=== PATIENT | male | born 1945 | race Caucasian/White ===

== ENCOUNTER 2016-03-02 11:25 | Emergency (ER) | payer OTHER ==
[~2016-03-02] VITALS: Ht 175.3 cm; Wt 95.8 kg
[~2016-03-02 11:25] MED LIST: ASPEC81 PO; EFFSR75 PO; LISI10TA PO; SAW450CA5 PO; SIMV10TA2 PO; VENL1CAP92 PO
[2016-03-02 11:28] VITALS: TEMP 36.7; Ht 175.3 cm; Wt 95.8 kg
[2016-03-02] MEDS ORDERED: SODIUM CHLORIDE 0.9% 1000ML 250 ML IV STA (12:27)
[2016-03-02] MEDS ORDERED: SODIUM CHLORIDE 0.9% 1000ML 1,000 ML IV STA (12:27)
[2016-03-02 12:56] LABS: BASO % 0.4 %; BASO ABS # 0.03 K/uL (0-0.2); COMPLETE YES; EOS % 9.8 %; HEMATOCRIT 40.6 % (42-52); IG% 0.1 %; LYMPH % 20.1 %; LYMPH ABS # 1.58 K/uL (1.2-3.4); MEAN CELL VOLUME 91.4 fL (80-100); MEAN CORPUSCULAR HEMOGLOBIN 31.8 pg (25-34); MEAN CORPUSCULAR HGB CONC 34.7 g/dl (32-36); MEAN PLATELET VOLUME 10.1 fL (7.4-10.4); MONO % 6.4 %; NEUT % 63.2 %; PLATELET COUNT 282 K/uL (130-400); RED BLOOD COUNT 4.44 M/uL (4.7-6.1); WHITE BLOOD COUNT 7.87 K/uL (4.8-10.8)
[2016-03-02 13:09] LABS: PARTIAL THROMBOPLASTIN RATIO 1.2; PROTHROMBIN TIME (PATIENT) 10.2 SECONDS (9.0-12.0)
[2016-03-02] MEDS ORDERED: LISI-725 PO (13:15)
[2016-03-02 13:19] LABS: BUN/CREATININE RATIO 18.2 (10-20); CALCIUM 8.6 mg/dl (8.5-10.1); CREATININE 0.91 mg/dl (0.60-1.40); POTASSIUM 3.5 mmol/L (3.5-5.1)
--- NOTE | 2016-03-02 13:20 | DIAGNOSTIC IMAGING REPORT ---
CT OF THE HEAD WITHOUT CONTRAST CLINICAL HISTORY: Dizziness. Hypertension. COMPARISON STUDY: No previous studies for comparison. CT DOSE: 823.94 mGycm TECHNIQUE: Helical axial images of the head were obtained without IV contrast. Automated exposure control was utilized for the study. FINDINGS: No acute intracranial hemorrhage, midline shift or mass effect is present. Brain volume is normal for age. Ventricular system is normal. The basilar cisterns are patent. There are no extra-axial collections. Feliz-white differentiation is maintained. There are no findings to suggest acute dural sinus thrombosis or acute territorial infarct. There are no significant calvarial abnormalities. Visualized portions of the sinuses and mastoid air cells are clear. IMPRESSION: No acute intracranial findings. Electronically signed by: Ronan Portillo M.D. 03/02/2016 1:18 PM
[2016-03-02 13:30] LABS: THYROID STIMULATING HORMONE 4.1 uIu/ml (0.300-4.500)
--- NOTE | 2016-03-02 14:22 | DIAGNOSTIC IMAGING REPORT ---
CHEST 2 VIEWS ROUTINE CLINICAL HISTORY: Hypertension, dizziness and chest pain. COMPARISON STUDY: Chest radiograph November 07, 2013. FINDINGS: There is no pneumothorax or pleural effusion. Lumbar spine hardware is incidentally noted. Mild cardiomegaly is unchanged. There is no evidence of pulmonary edema. There is possible underlying emphysema. Lower lung predominant interstitial thickening is noted. This is likely chronic. There is no consolidation. IMPRESSION: 1. No acute cardiopulmonary findings. 2. No change in lower lung predominant interstitial thickening which favors interstitial lung disease. This may reflect pulmonary fibrosis. Electronically signed by: Ronan Portillo M.D. 03/02/2016 2:20 PM
[2016-03-02] MEDS ORDERED: AMLO-110 PO (14:57)
[2016-03-02 15:00] VITALS: BP 159/74; PULSE 70; O2SAT 97
--- NOTE | 2016-03-02 20:57 | EMERGENCY ROOM VISIT NOTE ---
History Report prepared by Gabby: Breanne Pavon Under the Supervision of: Dr. Bobby Barron M.D. First contact with patient: 12:14 Chief Complaint: HYPERTENSION Stated Complaint: HIGH BP History of Present Illness The patient is a 71 year old male who presents to the Emergency Room with complaints of constant hypertension beginning [employer]. The patient has a history of hypertension and has been taking medication for years. He notes that 3 months ago he was switched to Lisinopril and last month his doctor increased his dosage to 20mg. The patient states that over the past month he has been experiencing vertigo and "cloudy" vision. This has been pretty constant over the past couple of weeks. Three days ago he had an episode of heaviness in his chest with shortness of breath that lasted all afternoon. He states that it felt like someone was sitting on his chest. He checked his blood pressure and it was over 200. He states that exercising helped to alleviate some of his symptoms. The patient had an appointment with his PCP this morning and his blood pressure was over 200 in the office. He was advised to come to the ED for further evaluation. The patient is currently experiencing fatigue, headache, and dizziness. He denies any current chest pain. He denies abdominal pain, black or bloody stools, numbness, weakness, and recent injury or falls. He has a history of anxiety and takes Effexor. He states that he is feeling very anxious now like he drank 6 cups of coffee. He notes an increase in his anxiety over the past month. Source of History: patient, spouse/significant other Onset: 1 month ago Position: other (global) Symptom Intensity: BP over 200 Quality: other (hypertension) Timing: constant Modifying Factors (Worsening): other (anxiety) Modifying Factors (Relieving): other (exercise) Associated Symptoms: No abdominal pain, No chest pain, No hematochezia, No melena, No numbness, No weakness Note: Pt notes vertigo and cloudy vision. Review of Systems See HPI for pertinent positives & negatives. A total of 10 systems reviewed and were otherwise negative. Past Medical & Surgical Medical Problems: (1) Bilateral inguinal hernia (2) Hypertension Old medical records were reviewed. Nurse's notes were reviewed and I agree with. Family History Diabetes mellitus FH: heart disease FH: lung disease FHx: cancer FHx: gallbladder disease Hypertension Kidney disease Kidney stones Social History Smoking Status: Former Smoker Smokeless Tobacco Use: No Alcohol Use: occasionally Marital Status: Housing Status: lives with significant other Occupation Status: retired Current/Historical Medications Scheduled Amlodipine (Norvasc), 5 MG PO DAILY Aspirin Enteric Coated (Ecotrin Or Generic *), 81 MG PO HS Lisinopril (Zestril), 20 MG PO HS [place] ([place] Repens) (Saw [place]), 1 CAP PO QAM Simvastatin (Zocor), 10 MG PO QAM Venlafaxine Hcl (Effexor Xr), 1 CAP PO DAILY Allergies Coded Allergies: No Known Allergies (Verified , 03/02/16) Physical Exam Vital Signs Date Time Temp Pulse Resp B/P Pulse Ox O2 Delivery O2 Flow Rate FiO2 03/02/16 15:00 70 16 159/74 97 03/02/16 13:41 185/86 03/02/16 13:24 63 18 198/94 98 Room Air 03/02/16 12:51 58 16 179/93 96 Room Air 03/02/16 12:39 61 03/02/16 11:28 36.7 69 18 213/103 98 Room Air Physical Exam General: Well developed well nourished non ill appearing older male in no acute distress, breathing comfortably on room air. Normal speech HEENT: Normal cephalic atraumatic. Pupils are equal round and reactive to light. Sclerae anicteric. Extraocular movements are intact. Oropharynx is pink with moist mucous membranes. No swelling of the mouth lips or tongue. Neck: Supple with a midline trachea. No meningeal signs or stiffness, no JVD or bruits. No Stridor. Chest: Clear to auscultation bilaterally. No wheezes or rhonchi. No increased work of breathing. Heart: regular rate and rhythm. Abdomen: Soft nontender, nondistended without rebound guarding or rigidity. Extremities: No cyanosis clubbing or edema. No calf tenderness or assymetry Spine/Back. Non tender to palpation. No CVA tenderness Skin: Good turgor without rashes. Neurologic exam: Cranial nerves two through 12 are intact. Motor and sensation are intact and symmetrical throughout. Normal finger to nose, normal gait, mild difficulty with heel to toe gait and Romberg. Medical Decision & Procedures ER Provider Diagnostic Interpretation: Radiology results as stated below per my review and radiologist interpretation: CT OF THE HEAD WITHOUT CONTRAST CLINICAL HISTORY: Dizziness. Hypertension. COMPARISON STUDY: No previous studies for comparison. CT DOSE: 823.94 mGycm TECHNIQUE: Helical axial images of the head were obtained without IV contrast. Automated exposure control was utilized for the study. FINDINGS: No acute intracranial hemorrhage, midline shift or mass effect is present. Brain volume is normal for age. Ventricular system is normal. The basilar cisterns are patent. There are no extra-axial collections. Feliz-white differentiation is maintained. There are no findings to suggest acute dural sinus thrombosis or acute territorial infarct. There are no significant calvarial abnormalities. Visualized portions of the sinuses and mastoid air cells are clear. IMPRESSION: No acute intracranial findings. Electronically signed by: Ronan Portillo M.D. 03/02/2016 1:18 PM CHEST 2 VIEWS ROUTINE CLINICAL HISTORY: Hypertension, dizziness and chest pain. COMPARISON STUDY: Chest radiograph November 07, 2013. FINDINGS: There is no pneumothorax or pleural effusion. Lumbar spine hardware is incidentally noted. Mild cardiomegaly is unchanged. There is no evidence of pulmonary edema. There is possible underlying emphysema. Lower lung predominant interstitial thickening is noted. This is likely chronic. There is no consolidation. IMPRESSION: 1. No acute cardiopulmonary findings. 2. No change in lower lung predominant interstitial thickening which favors interstitial lung disease. This may reflect pulmonary fibrosis. Electronically signed by: Ronan Portillo M.D. 03/02/2016 2:20 PM Laboratory Results 03/02/16 12:37 Red Blood Count 4.44, Mean Corpuscular Volume 91.4, Mean Corpuscular Hemoglobin 31.8, Mean Corpuscular Hemoglobin Concent 34.7, Mean Platelet Volume 10.1, Neutrophils (%) (Auto) 63.2, Lymphocytes (%) (Auto) 20.1, Monocytes (%) (Auto) 6.4, Eosinophils (%) (Auto) 9.8, Basophils (%) (Auto) 0.4, Neutrophils # (Auto) 4.98, Lymphocytes # (Auto) 1.58, Monocytes # (Auto) 0.50, Eosinophils # (Auto) 0.77, Basophils # (Auto) 0.03 03/02/16 12:37 Test 03/02/16 12:34 03/02/16 12:37 03/02/16 12:53 Prothrombin Time 10.2 SECONDS (9.0-12.0) Prothromb Time International Ratio 1.0 (0.9-1.1) Activated Partial Thromboplast Time 31.0 SECONDS (21.0-31.0) Partial Thromboplastin Ratio 1.2 White Blood Count 7.87 K/uL (4.8-10.8) Red Blood Count 4.44 M/uL (4.7-6.1) Hemoglobin 14.1 g/dL (14.0-18.0) Hematocrit 40.6 % (42-52) Mean Corpuscular Volume 91.4 fL (80-100) Mean Corpuscular Hemoglobin 31.8 pg (25-34) Mean Corpuscular Hemoglobin Concent 34.7 g/dl (32-36) Platelet Count 282 K/uL (130-400) Mean Platelet Volume 10.1 fL (7.4-10.4) Neutrophils (%) (Auto) 63.2 % Lymphocytes (%) (Auto) 20.1 % Monocytes (%) (Auto) 6.4 % Eosinophils (%) (Auto) 9.8 % Basophils (%) (Auto) 0.4 % Neutrophils # (Auto) 4.98 K/uL (1.4-6.5) Lymphocytes # (Auto) 1.58 K/uL (1.2-3.4) Monocytes # (Auto) 0.50 K/uL (0.11-0.59) Eosinophils # (Auto) 0.77 K/uL (0-0.5) Basophils # (Auto) 0.03 K/uL (0-0.2) RDW Standard Deviation 45.9 fL (36.4-46.3) RDW Coefficient of Variation 13.8 % (11.5-14.5) Immature Granulocyte % (Auto) 0.1 % Immature Granulocyte # (Auto) 0.01 K/uL (0.00-0.02) Anion Gap 10.0 mmol/L (3-11) Est Creatinine Clear Calc Drug Dose 86.3 ml/min Estimated GFR () 98.6 Estimated GFR (Non- 85.1 BUN/Creatinine Ratio 18.2 (10-20) Calcium Level 8.6 mg/dl (8.5-10.1) Total Bilirubin 0.9 mg/dl (0.2-1) Direct Bilirubin 0.2 mg/dl (0-0.2) Aspartate Amino Transf (AST/SGOT) 26 U/L (15-37) Alanine Aminotransferase (ALT/SGPT) 30 U/L (12-78) Alkaline Phosphatase 70 U/L (45-117) Total Creatine Kinase 268 U/L (39-308) Creatine Kinase MB 8.0 ng/ml (0.5-3.6) Creatine Kinase MB Ratio 3.0 (0-3.0) Total Protein 7.5 gm/dl (6.4-8.2) Albumin 4.0 gm/dl (3.4-5.0) Lipase 87 U/L (73-393) Thyroid Stimulating Hormone (TSH) 4.100 uIu/ml (0.300-4.500) Bedside Troponin I 0.000 ng/ml (0-0.045) Laboratory studies as stated above per my review. Medications Administered Medications (Trade) Dose Ordered Sig/Rob Route Start Time Stop Time Status Last Admin Dose Admin Sodium Chloride 250 ml @ 999 mls/hr Q16M STAT IV 03/02/16 12:27 03/02/16 12:42 DC 03/02/16 12:27 999 MLS/HR Sodium Chloride (Nss 1000ml) 1,000 ml @ 100 mls/hr Q10H STAT IV 03/02/16 12:27 03/02/16 15:24 DC 03/02/16 12:27 100 MLS/HR ECG Indication: chest pain Rate (beats per minute): 60 Rhythm: normal sinus Findings: no acute ischemic change, no ectopy Comparison ECG Date: 01/29/15 Change: no significant change ED Course 1214: Past medical records reviewed. The patient was evaluated in room B10, and a complete history and physical examination were performed. 1227: NSS 1000 ml @ 100 mls/hr IV, NSS 250 ml @ 999 mls/hr IV 1322: I reassessed the patient at this time. He is doing well and his blood pressure has improved. 1335: I reassessed the patient and he is resting comfortably. His blood pressure is 180/80. 1409: I spoke with Dr. Arellano, the patient's PCP. He agrees with the treatment plan and will follow-up with the patient in the office. 1439: I reassessed the patient at this time. He is feeling better and resting comfortably. I discussed the results and treatment plan with the patient. I answered all pertaining questions that he had. He expressed understanding and verbalized agreement. The patient will be discharged home. Medical Decision Differential diagnoses includes hypertensive urgency, intracranial process, acute coronary syndrome, arrhythmia, anxiety, CHF, electrolyte or metabolic abnormality. This patient comes in after having high blood pressure in the doctor's office. When he arrived here, he was just over 200 systolic. While he was here in the ER without any treatment his blood pressure slowly came down to 159/74 prior to discharge. He looks well he has a normal neurologic exam. He's does have some dizziness mostly when looking up at this has been going on for months he tells me. He had some chest pain several days ago but had none since then. His EKG does not suggest acute cardiac events and his troponin is not elevated. His total CK is not elevated. He has no significant electrolyte or metabolic abnormality. He has no evidence to suggest congestive heart failure. He feels good and would like to go home and does not want to come in the hospital. I think is reasonable with close follow-up. I did discuss case with Dr. Arellano, his primary care physician, and he recommends a start him on amlodipine 5 mg by mouth. I did this and he will log his blood pressure follow-up with Dr. Arellano this week for recheck and return to ER over the weekend if worsening of symptoms , numbness or weakness, fever or chills, any new problems or concerns. He is happy with the plan and discharged to home. Consults Time Called: 1406 Consulting Physician: Dr. Arellano Returned Call: [address] Arellano, the patient's PCP. He agrees with the treatment plan and will follow-up with the patient in the office. Impression Primary Impression: Hypertension Additional Impression: Dizziness Scribe Attestation The scribe's documentation has been prepared under my direction and personally reviewed by me in its entirety. I confirm that the note above accurately reflects all work, treatment, procedures, and medical decision making performed by me. Departure Information Dispostion Home / Self-Care Prescriptions Amlodipine (Norvasc) 5 Mg Tab 5 MG PO DAILY for 30 Days, #30 TAB Prov: Bobby Barron M.D. 03/02/16 Referrals True Arellano D[facility] (PCP) Forms HOME CARE DOCUMENTATION FORM, IMPORTANT VISIT INFORMATION, WORK / SCHOOL INSTRUCTIONS Patient Instructions A Signature Page, My [employer] Additional Instructions Rest. Drink plenty of fluids. Return if: Increasing pain, worsening of symptoms, further chest pain, worsening of dizziness, numbness or weakness fever or chills, any new problems or concerns. Take amlodipine 5 mg once a day Take an record your blood pressure frequently and follow-up with your doctor this week for recheck and blood pressure recheck
== END 2016-03-02 15:13 | disposition home or self-care (01) ==
LOC: C.EDB 11:25
DX: I10 Essential (primary) hypertension (principal); R42 Dizziness and giddiness; Z79.899 Other long term (current) drug therapy; Z79.82 Long term (current) use of aspirin

== ENCOUNTER → 2016-07-06 | Outpatient (CLI) | payer OTHER ==
[~2016-07-06] MED LIST changes: -EFFSR75 PO; +LISI-725 PO; -LISI10TA PO
[2016-07-06 09:53] LABS: ESTIMATED AVERAGE GLUCOSE 126 mg/dl; HA1C FLAG Normal (Normal)
[2016-07-06 10:07] LABS: ALT/SGPT 39 U/L (12-78); BLOOD UREA NITROGEN 18 mg/dl (7-18); BUN/CREATININE RATIO 20.1 (10-20); CARBON DIOXIDE 28 mmol/L (21-32); CHLORIDE 104 mmol/L (98-107); CREATININE 0.88 mg/dl (0.60-1.40); GLUCOSE 102 mg/dl (70-99); POTASSIUM 3.8 mmol/L (3.5-5.1); SODIUM 141 mmol/L (136-145)
[2016-07-06 10:09] LABS: ALB/GLOB RATIO 1.3 (0.9-2); ALKALINE PHOSPHATASE 83 U/L (45-117); AST/SGOT 28 U/L (15-37)
[2016-07-06 10:15] LABS: CALCIUM 8.9 mg/dl (8.5-10.1)
--- NOTE | 2016-07-10 14:14 | CODING QUERY MEDICAL NECESSITY ---
CQSUPPORTING DIAGNOSIS NEEDED A supporting diagnosis is required for the test/procedure performed on this patient in order for us to be reimbursed by the patient's insurance. Please provide a supporting diagnosis for the following test/procedure listed below next to the test name along with your signature. *If there is no additional diagnosis for this patient that would support the following test/procedure please document that below next to the test/procedure. Test(s)/Procedure(s) that require a supporting diagnosis: DOS 07/06/16 GLYCATED HEMOGLOBIN Provider Signature: Date: Thank you Yenifer Handy [place] [place] Information Management Once completed, please kindly fax back to [phone] For questions please call [phone]
== END | disposition home or self-care (01) ==
LOC: C.LAB 07:08
PROVIDERS: ATTEND Family Medicine
DX: R73.03 Prediabetes (principal); I10 Essential (primary) hypertension; Z11.59 Encounter for screening for other viral diseases